=== PATIENT | female | born 1960 | race Caucasian/White ===

== ENCOUNTER 2021-03-07 13:40 | Emergency (ER) | payer BC ==
--- NOTE | 2021-03-07 13:53 | EDM.PDOC ---
ED HPI GENERAL MEDICAL PROBLEM - General Chief Complaint: Cardiovascular Problem Stated Complaint: ELEV. BLOOD PRESSURE, HEART RACING Time Seen by Provider: 03/07/21 13:53 Source of Information: Reports: Patient History Limitations: Reports: No Limitations - History of Present Illness INITIAL COMMENTS - FREE TEXT/NARRATIVE: Radha, 60-year-old female, presents emergency department with hypertension as well as which she feels a pressure with heartbeat in her chest. She was seen on Monday as she was having some respiratory concerns and was noted to be mildly hypertensive at that time she was switched from Combivent to Trelegy inhaler and has been monitoring her blood pressure daily since then. It is noted it is elevated consistently and presents today as she was in the 100s diastolically and is experiencing a mild headache. 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 Denies any change in bowel or bladder, appetite has been typical as well as fluid intake. She has not had any intake of anything that would be significantly increasing her blood pressure. She does continue to smoke nearly a pack per day of cigarettes. Onset: Gradual - Related Data Allergies Allergy/AdvReac Type Severity Reaction Status Date / Time amoxicillin Allergy Other Verified 03/24/16 09:31 Home Meds: Home Meds Cholecalciferol (Vitamin D3) [Vitamin D] 10,000 unit PO DAILY 03/07/21 [History] Codeine Phosphate/Guaifenesin [Guaiatussin AC Liquid] 5 ml PO ASDIRECTED PRN 03/07/21 [History] Fluticasone/Umeclidin/Vilanter [Trelegy Ellipta 100-62.5-25] 1 puff INH DAILY 03/07/21 [History] hydrALAZINE HCl [Hydralazine HCl] 10 mg PO TID 30 Days #90 tablet 03/07/21 [Rx] Past Medical History - Past Health History Medical/Surgical History: Denies Medical/Surgical History HEENT History: Reports: Impaired Vision Cardiovascular History: Reports: None Respiratory History: Reports: Bronchitis, Recurrent Gastrointestinal History: Reports: None Genitourinary History: Reports: None [employer] History: Reports: Other (See Below) (ovarian cyst/ removal) Musculoskeletal History: Reports: None Neurological History: Reports: None Psychiatric History: Reports: None Endocrine/Metabolic History: Reports: None Hematologic History: Reports: None Oncologic (Cancer) History: Reports: None Dermatologic History: Reports: None - Infectious Disease History Infectious Disease History: Reports: Chicken Pox - Past Surgical History Female Surgical History: Reports: Cystectomy (Ovarian) Musculoskeletal Surgical History: Reports: None Social & Family History - Family History Family Medical History: No Pertinent Family History - Tobacco Use Tobacco Use Status *Q: Current Every Day Tobacco User Tobacco Use Within Last Twelve Months: Cigarettes Used Tobacco, but Quit: No Smoking Cessation Information Provided To Patient: No Second Hand Smoke Exposure: No - Living Situation & Occupation Living situation: Reports: Occupation: Employed ED ROS GENERAL - Review of Systems Review Of Systems: Comprehensive ROS is negative, except as noted in HPI. ED EXAM, GENERAL - Physical Exam Exam: See Below Free Text/Narrative:: Alert, oriented, in no acute distress. There is no cyanosis nor pallor noted. Glasses are worn PERRLA no icterus no injection. Davey moist mucous membranes. Neck is soft supple with no lymphadenopathy no JVD. I did not appreciate carotid bruit and there is no rigidity noted. Thorax clear with no wheezes no crackles, mildly diminished at the base. Cardiac S1-S2 I do not appreciate any murmur. Abdomen is rotund this bowel sounds are present with no tenderness. No flank pain is noted. There is trace edema to the lower extremities. Skin is warm and dry radial pulse correlates with apical heart rate. #1 Interpretation EKG Date: 03/07/21 Time: 14:20 Rhythm: NSR Rate (Beats/Min): 65 [place]: Normal P-Wave: Present QRS: Normal ST-T: Normal QT: Normal Comparison: NA - No Prior EKG Course - Vital Signs Last Recorded V/S: Last Vital Signs Temp 97.5 F 03/07/21 13:49 Pulse 71 03/07/21 13:49 Resp 16 03/07/21 13:49 BP 188/105 H 03/07/21 13:49 Pulse Ox 93 L 03/07/21 13:49 - Orders/Labs/Meds Orders: Active Orders 24 hr Category Date Time Status Peripheral IV Care [RC] . DIRECTED Care 03/07/21 14:02 Active Sodium Chloride 0.9% [Saline Flush] Med 03/07/21 14:02 Active 10 ml FLUSH Q8HR PRN hydrALAZINE [Apresoline] Med 03/07/21 15:45 Ordered 20 mg PO Q12HR Peripheral IV Insertion Adult [OM.PC] Stat Oth 03/07/21 14:02 Ordered EKG 12 Lead [EK] Stat Ther 03/07/21 14:01 Ordered Medication Orders Hydralazine HCl (Hydralazine 10 Mg Tab) 20 mg PO BID@0700,2100 SHELTON Sodium Chloride (Sodium Chloride 0.9% 10 Ml Syringe) 10 ml FLUSH Q8HR PRN PRN Reason: keep vein open Last Admin: 03/07/21 14:08 Dose: 10 ml Documented by: AUDRA Labs: Laboratory Tests 03/07/21 03/07/21 03/07/21 Range/Units 14:08 14:08 14:08 WBC 8.08 (5.00-10.00) 10^3/uL RBC 5.09 (3.80-5.50) 10^6/uL Hgb 15.8 (12.0-16.0) g/dL Hct 47.1 H (37.0-47.0) % MCV 92.5 H (82.0-92.0) fL MCH 31.0 (27.0-31.0) pg MCHC 33.5 (32.0-36.0) g/dL RDW 12.6 (11.5-14.5) % Plt Count 219 (150-400) 10^3/uL MPV 9.7 (7.4-10.4) fL Immature Gran % (Auto) 0.2 (0.0-5.0) % Neut % (Auto) 70.3 H (50.0-70.0) % Lymph % (Auto) 19.9 L (20.0-40.0) % [place] % (Auto) 6.7 (2.0-8.0) % Eos % (Auto) 2.5 (1.0-3.0) % Baso % (Auto) 0.4 (0.0-1.0) % Neut # (Auto) 5.68 (2.50-7.00) 10^3/uL Lymph # (Auto) 1.61 (1.00-4.00) 10^3/uL [place] # (Auto) 0.54 (0.10-0.80) 10^3/uL Eos # (Auto) 0.20 (0.10-0.30) 10^3/uL Baso # (Auto) 0.03 (0.00-0.10) 10^3/uL Immature Gran # (Auto) 0.02 (0.00-0.50) 10^3/uL D-Dimer, Quantitative < 100 (<400) ng/mL Sodium 144 (136-145) mmol/L Potassium 3.8 (3.5-5.1) mmol/L Chloride 106 (98-107) mmol/L Carbon Dioxide 28.8 (21.0-32.0) mmol/L Anion Gap 13.0 (5-15) mmol/L BUN 11 (7-18) mg/dL Creatinine 0.82 (0.51-1.17) mg/dL Est Cr Clr Drug Dosing 59.15 mL/min Estimated GFR (MDRD) > 60 mL/min Glucose 139 (70-140) mg/dL Calcium 8.4 L (8.7-10.3) mg/dL Total Bilirubin 0.4 (0.2-1.0) mg/dL AST 17 (15-37) U/L ALT 31 (14-63) U/L Alkaline Phosphatase 66 (46-116) U/L Troponin I High Sens 8.600 (0-51.000) pg/mL Total Protein 6.8 (6.4-8.2) g/dL Albumin 3.30 L (3.40-5.00) g/dL Meds: Medications Generic Name Dose Route Start Last Admin Trade Name Freq PRN Reason Stop Dose Admin Hydralazine HCl 20 mg 03/07/21 21:00 Hydralazine 10 Mg Tab PO BID@0700,2100 SHELTON Sodium Chloride 10 ml 03/07/21 14:02 03/07/21 14:08 Sodium Chloride 0.9% 10 Ml Syringe FLUSH 10 ml Q8HR PRN Administration keep vein open Discontinued Medications Generic Name Dose Route Start Last Admin Trade Name Freq PRN Reason Stop Dose Admin Hydralazine HCl 10 mg 03/07/21 14:06 03/07/21 14:26 Hydralazine 20 Mg/Ml Sdv IVPUSH 03/07/21 14:07 10 mg ONETIME ONE Administration - Re-Assessments/Exams Free Text/Narrative Re-Assessment/Exam: 03/07/21 16:09 Good response was noted from IV hydralazine. Pressure in her head trauma resolved with no sequela. She stated it was not a headache nor any visual changes being noted. Hesitant to use beta-nelson secondary of her beta agonist for her respiratory needs. We did discuss her cardiac silhouette upper limits as well as tortuous aorta which may need to be followed up upon in the future. Advised to contact clinic if blood pressure was not maintained on the twice daily dosing and would need to increase to 3 times daily. 03/07/21 16:13 Departure - Departure Time of Disposition: 16:04 Disposition: Home, Self-Care 01 Condition: Good Clinical Impression: Hypertension, Palpitations with regular cardiac rhythm, Tortuous aorta Prescriptions: hydrALAZINE HCl [Hydralazine HCl] 10 mg PO TID 30 Days #90 tablet Instructions: Hypertension, Adult, [id number], Palpitations, [id number] Referrals: Lizy Carrillo MD [Primary Care Provider] - Forms: ED Department Discharge Additional Instructions: Your lab work all returned in good standing with no evidence of cardiac dysfunction. Your chest x-ray shows a somewhat tortuous aorta with no specific change in that since your last x-ray. We will start you on hydralazine 10 mg to be taken twice daily by mouth. This is what you were given in the emergency department and you responded quite well to that. Prescription will be sent to [facility] pharmacy for the 10 mg 3 times a day in the event it needs to be increased prior to you getting in for your recheck appointment. Please call the clinic and discuss this with nursing staff or Dr. Medel prior to increasing the dose. Contact the clinic tomorrow to obtain a appointment for recheck in the next week as available. Continue your medications as directed. Reevaluate the clinic or the emergency department outside of clinic hours, as needed. Sepsis Event Note (ED) - Focused Exam Vital Signs: Vital Signs Temp Pulse Resp BP Pulse Ox 03/07/21 13:49 97.5 F 71 16 188/105 H 93 L - Problem List & Annotations (1) Hypertension SNOMED Code(s): 59159078 Code(s): I10 - ESSENTIAL (PRIMARY) HYPERTENSION Status: Acute Priority: High Current Visit: Yes Qualifiers: Hypertension type: primary hypertension Qualified Code(s): I10 - Essential (primary) hypertension (2) Palpitations with regular cardiac rhythm SNOMED Code(s): 100187886 Code(s): R00.2 - PALPITATIONS Status: Acute Priority: High Current Visit: Yes (3) Tortuous aorta SNOMED Code(s): 54014953 Code(s): I77.1 - STRICTURE OF ARTERY Status: Chronic Priority: High Current Visit: Yes - Problem List Review Problem List Initiated/Reviewed/Updated: Yes - My Orders Last 24 Hours: My Active Orders 03/07/21 14:01 EKG 12 Lead [EK] Stat 03/07/21 14:02 Peripheral IV Care [RC] . DIRECTED Sodium Chloride 0.9% [Saline Flush] 10 ml FLUSH Q8HR PRN Peripheral IV Insertion Adult [OM.PC] Stat 03/07/21 15:45 hydrALAZINE [Apresoline] 20 mg PO Q12HR - Assessment/Plan Last 24 Hours: My Active Orders 03/07/21 14:01 EKG 12 Lead [EK] Stat 03/07/21 14:02 Peripheral IV Care [RC] . DIRECTED Sodium Chloride 0.9% [Saline Flush] 10 ml FLUSH Q8HR PRN Peripheral IV Insertion Adult [OM.PC] Stat 03/07/21 15:45 hydrALAZINE [Apresoline] 20 mg PO Q12HR Plan: Your lab work all returned in good standing with no evidence of cardiac dysfunction. Your chest x-ray shows a somewhat tortuous aorta with no specific change in that since your last x-ray. We will start you on hydralazine 10 mg to be taken twice daily by mouth. This is what you were given in the emergency department and you responded quite well to that. Prescription will be sent to [facility] pharmacy for the 10 mg 3 times a day in the event it needs to be increased prior to you getting in for your recheck appointment. Please call the clinic and discuss this with nursing staff or Dr. Medel prior to increasing the dose. Contact the clinic tomorrow to obtain a appointment for recheck in the next week as available. Continue your medications as directed. Reevaluate the clinic or the emergency department outside of clinic hours, as needed.
[2021-03-07] MEDS: Sodium Chloride 0.9% 10 ML Syringe FLUSH PRN (14:08)
[2021-03-07] MEDS: hydrALAZINE 20 MG/ML SDV IVPUSH ONE (14:26)
[2021-03-07 14:35] LABS: CHLORIDE,CL 106 mmol/L (98-107); SODIUM,NA 144 mmol/L (136-145)
--- NOTE | 2021-03-07 15:33 | CR ---
[id number] RAD/RAD Chest PA And Lateral EXAM: RAD Chest PA And Lateral INDICATION: HYPERTENSION. COMPARISON: March 2016. DISCUSSION/IMPRESSION: Mild cardiomegaly and central vascular congestion. Lungs are clear. No pleural effusion or pneumothorax. William Brown MD 03/07/21 1531 Thank you for allowing us to participate in the care of your patient.
[2021-03-07] MEDS: hydrALAZINE 10 MG Tab ONE (16:33)
[2021-03-07] MEDS ORDERED: hydrALAZINE 10 MG Tab PO SCH (21:00)
== END 2021-03-07 16:10 | disposition home or self-care (01) ==
LOC: KA.ED 13:40
DX: I10 Essential (primary) hypertension (principal); I77.1 Stricture of artery; R00.2 Palpitations; Z72.0 Tobacco use; Z88.0 Allergy status to penicillin
CPT/HCPCS: 36415; 71046; 80053; 84484; 85025; 85379; 93005; 93010; 96374; 99284; 99285-25; J0360

== ENCOUNTER 2021-12-04 12:05 | Emergency (ER) | payer BC | END 2021-12-04 13:35 | disposition home or self-care (01) | LOC: KA.ED 12:05 | DX: M19.022 Primary osteoarthritis, left elbow (principal); M70.22 Olecranon bursitis, left elbow; Z88.0 Allergy status to penicillin; Z86.16 Personal history of COVID-19 | CPT/HCPCS: 36415; 73070-LT; 85025; 99283 ==

== ENCOUNTER 2022-08-02 10:32 | Day surgery (SDC) | payer BC ==
[2022-08-02] MEDS ORDERED: Sodium Chloride 0.9% 10 ML Syringe FLUSH PRN (11:00)
[2022-08-02] MEDS: Lactated Ringers 1,000 ML IV SCH (11:08)
[2022-08-02] MEDS ORDERED: Midazolam 1 MG/ML 2 ML SDV ONE (11:52)
[2022-08-02] MEDS ORDERED: Propofol 200 MG/20 ML SDV ONE (11:53)
[2022-08-02 14:13] VITALS: BP 133/88; PULSE 64
== END 2022-08-02 14:07 | disposition home or self-care (01) ==
LOC: KA.SDS 10:32
PROVIDERS: ATTEND Surgery
DX: K57.30 Diverticulosis of large intestine without perforation or abscess without bleeding (principal); I10 Essential (primary) hypertension; J45.909 Unspecified asthma, uncomplicated; Z88.1 Allergy status to other antibiotic agents; Z79.899 Other long term (current) drug therapy
CPT/HCPCS: 00812; J2250; J2704; J7120

== ENCOUNTER 2024-07-07 10:02 | Inpatient (IN) | payer BC ==
[2024-07-07] MEDS ORDERED: Sodium Chloride 0.9% 10 ML Syringe FLUSH PRN (10:17)
[2024-07-07 10:30] LABS: BASOPHILS ABSOLUTE AUTO 0.01 10^3/uL (0.00-0.10); BASOPHILS PERCENT AUTO 0.2 % (0.0-1.0); EOSINOPHILS ABSOLUTE AUTO 0.01 10^3/uL (0.10-0.30); EOSINOPHILS PERCENT AUTO 0.2 % (1.0-3.0); HEMATOCRIT 54.9 % (37.0-47.0); HEMOGLOBIN 17.7 g/dL (12.0-16.0); IMMATURE GRAN ABSOLUTE AUTO 0.01 10^3/uL (0.00-0.04); IMMATURE GRAN PERCENT AUTO 0.2 % (0.0-0.4); LYMPHOCYTES ABSOLUTE AUTO 0.59 10^3/uL (1.00-4.00); LYMPHOCYTES PERCENT AUTO 9.2 % (20.0-40.0); MEAN CORPUSCULAR HEMOGLOBIN 30.4 pg (27.0-31.0); MEAN CORPUSCULAR HGB CONC 32.2 g/dL (32.0-36.0); MEAN CORPUSCULAR VOLUME 94.2 fL (82.0-92.0); MEAN PLATELET VOLUME 9.6 fL (7.4-10.4); MONOCYTES ABSOLUTE AUTO 0.62 10^3/uL (0.10-0.80); MONOCYTES PERCENT AUTO 9.7 % (2.0-8.0); NEUTROPHILS ABSOLUTE AUTO 5.17 10^3/uL (2.50-7.00); NEUTROPHILS PERCENT AUTO 80.5 % (50.0-70.0); PLATELET COUNT,PLT 173 10^3/uL (150-400); RED BLOOD CELL COUNT 5.83 10^6/uL (3.80-5.50); RED CELL DISTRIBUTION WIDTH 13.3 % (11.5-14.5); WHITE BLOOD CELL COUNT,WBC 6.41 10^3/uL (5.00-10.00)
[2024-07-07] MEDS: Sodium Chloride 0.9% 1,000 ML IV ONE (10:31)
[2024-07-07] MEDS: methylPREDNISolone Sodium Succinate 125 MG/2 ML SDV IVPUSH ONE (10:37)
[2024-07-07 10:50] LABS: LACTIC ACID 1.1 mmol/L (0.4-2.0)
[2024-07-07 10:59] LABS: ALBUMIN 3.38 g/dL (3.40-5.00); ANION GAP 13.3 mmol/L (5-15); BILIRUBIN TOTAL 0.4 mg/dL (0.2-1.0); C-REACTIVE PROTEIN 2.59 mg/dL (0.00-0.50); CALCIUM 8.8 mg/dL (8.7-10.3); CARBON DIOXIDE,CO2 30.9 mmol/L (21.0-32.0); CREATININE 0.58 mg/dL (0.51-1.17); EST CRCL DRUG DOSING (CG) 73.16 mL/min; POTASSIUM,K 4.2 mmol/L (3.5-5.1); PROTEIN TOTAL,TP 7.3 g/dL (6.4-8.2)
[2024-07-07 11:13] LABS: INFLUENZA A NAA POSITIVE (NEGATIVE); INFLUENZA B NAA NEGATIVE (NEGATIVE); RESPIRATORY SYNCYTIAL VIR NAA NEGATIVE (NEGATIVE)
[2024-07-07 11:14] LABS: CORONAVIRUS COVID-19 NAA NEGATIVE (NEGATIVE)
[2024-07-07] MEDS ORDERED: Polyethylene Glycol 3350 Powder 17 GM Packet PO PRN (13:17)
[2024-07-07] MEDS ORDERED: Codeine/guaiFENesin 10-100 MG/5 ML Syrup 5 ML Cup PO PRN (13:17)
[2024-07-07] MEDS ORDERED: Ondansetron 4 MG Tab.DIS PO PRN (13:17)
[2024-07-07] MEDS ORDERED: traMADol 50 MG Tab PO PRN (13:22)
[2024-07-07] MEDS: Albuterol/Ipratropium 3.0-0.5 MG/3 ML Neb Soln NEB PRN (14:15)
[2024-07-07] MEDS: Albuterol/Ipratropium 3.0-0.5 MG/3 ML Neb Soln NEB SCH (17:22)
[2024-07-08 07:32] LABS: HEMATOCRIT 52.9 % (37.0-47.0); HEMOGLOBIN 16.8 g/dL (12.0-16.0); IMMATURE GRAN ABSOLUTE AUTO 0.02 10^3/uL (0.00-0.04); IMMATURE GRAN PERCENT AUTO 0.3 % (0.0-0.4); LYMPHOCYTES PERCENT AUTO 9.5 % (20.0-40.0); MEAN CORPUSCULAR HEMOGLOBIN 30.8 pg (27.0-31.0); MEAN CORPUSCULAR HGB CONC 31.8 g/dL (32.0-36.0); MEAN CORPUSCULAR VOLUME 96.9 fL (82.0-92.0); MEAN PLATELET VOLUME 9.7 fL (7.4-10.4); MONOCYTES ABSOLUTE AUTO 0.69 10^3/uL (0.10-0.80); MONOCYTES PERCENT AUTO 9.3 % (2.0-8.0); NEUTROPHILS ABSOLUTE AUTO 5.99 10^3/uL (2.50-7.00); NEUTROPHILS PERCENT AUTO 80.9 % (50.0-70.0); PLATELET COUNT,PLT 152 10^3/uL (150-400); RED BLOOD CELL COUNT 5.46 10^6/uL (3.80-5.50); RED CELL DISTRIBUTION WIDTH 13.2 % (11.5-14.5)
[2024-07-08 07:47] LABS: ALBUMIN 3.14 g/dL (3.40-5.00); ANION GAP 8.8 mmol/L (5-15); BILIRUBIN TOTAL 0.2 mg/dL (0.2-1.0); CALCIUM 8.6 mg/dL (8.7-10.3); CARBON DIOXIDE,CO2 33.7 mmol/L (21.0-32.0); CREATININE 0.51 mg/dL (0.51-1.17); EST CRCL DRUG DOSING (CG) 83.21 mL/min; POTASSIUM,K 4.5 mmol/L (3.5-5.1); PROTEIN TOTAL,TP 6.9 g/dL (6.4-8.2)
[2024-07-08] MEDS: FLUTICASONE INH SCH (08:41)
[2024-07-08] MEDS: VILANTER INH SCH (08:41)
[2024-07-08] MEDS: UMECLIDIN INH SCH (08:41)
[2024-07-08] MEDS: methylPREDNISolone Sodium Succinate 40 MG/1 ML SDV IVPUSH SCH (09:07)
[2024-07-08] MEDS: amLODIPine 5 MG Tab PO SCH (09:07)
[2024-07-08] MEDS ORDERED: guaiFENesin/Dextromethorphan 100-10 MG/5 ML Soln 5 ML Cup PO PRN (10:08)
[2024-07-08 10:31] LABS: O2 DELIVERY DEVICE NASAL CANNULA
[2024-07-08 10:32] LABS: BASE EXCESS ARTERIAL 7 mmol/L ((-2)-(+3)); BICARBONATE,ARTERIAL 37 mmol/L (21-28); O2 SATURATION ARTERIAL 96 %; PH,ARTERIAL 7.33 pH (7.35-7.45); PO2 ARTERIAL 95 mmHG (83-108)
[2024-07-08 10:34] LABS: PCO2 ARTERIAL 70 mmHG (35-48)
[2024-07-08] MEDS: Acetaminophen 325 MG Tab PO PRN (10:52)
[2024-07-08] MEDS: Levofloxacin/Dextrose 5%-Water 750 MG in Premix Bag 1 BAG IV SCH (11:45)
[2024-07-08] MEDS: Sodium Chloride 0.9% 50 ML IV SCH (11:54)
[2024-07-08] MEDS: Iopamidol 755 Mg/ML 100 ML Bottle IV ONE (11:55)
== END 2024-07-08 11:55 | DRG 113 ==
LOC: KA.ED 10:02 → KA.MS 12:05
PROVIDERS: ADMIT Internal Medicine; ATTEND Internal Medicine
PROC: 4A033R1 Measurement of Arterial Saturation, Peripheral, Percutaneous Approach (ICD-10-PCS; principal; 2024-07-08)
DX: J10.1 Influenza due to other identified influenza virus with other respiratory manifestations (principal); J96.01 Acute respiratory failure with hypoxia; J45.41 Moderate persistent asthma with (acute) exacerbation; Z68.41 Body mass index [BMI] 40.0-44.9, adult; F15.90 Other stimulant use, unspecified, uncomplicated; F17.210 Nicotine dependence, cigarettes, uncomplicated; H54.7 Unspecified visual loss; I10 Essential (primary) hypertension; E66.9 Obesity, unspecified; Z88.1 Allergy status to other antibiotic agents; Z79.51 Long term (current) use of inhaled steroids; Z79.899 Other long term (current) drug therapy; Z79.1 Long term (current) use of non-steroidal anti-inflammatories (NSAID); Z86.16 Personal history of COVID-19; Z98.890 Other specified postprocedural states
CPT/HCPCS: 0241U; 36415; 36600; 71045; 71275; 80053; 82803; 83605; 83880; 84484; 85025; 86140; 87040; 93010; 94640; 96361; 96374; 99284; 99285-25; A9270-GY; J1956; J2919; J3490; J7030; J7620-GY; Q3014; Q9967

== ENCOUNTER 2024-08-29 17:42 | Emergency (ER) | payer BC ==
[2024-08-29] MEDS: Ketorolac 30 MG/ML SDV IVPUSH ONE (18:25)
[2024-08-29] MEDS ORDERED: Sodium Chloride 0.9% 10 ML Syringe FLUSH PRN (18:33)
[2024-08-29] MEDS: Diclofenac Sodium 1% Gel 100 GM Tube TOP ONE (19:15)
== END 2024-08-29 18:45 | disposition home or self-care (01) ==
LOC: KA.ED 17:42
DX: M25.571 Pain in right ankle and joints of right foot (principal); M25.531 Pain in right wrist; I10 Essential (primary) hypertension; J45.909 Unspecified asthma, uncomplicated; E66.9 Obesity, unspecified; Z88.0 Allergy status to penicillin; Z79.899 Other long term (current) drug therapy; Z86.16 Personal history of COVID-19; Z87.891 Personal history of nicotine dependence
CPT/HCPCS: 96374; 99283; 99283-25; J1885